=== PATIENT | male | born 1995 | race Asian ===

== ENCOUNTER 2021-12-31 19:52 | Inpatient (IN) | payer MEDICAID, OTHER ==
[~2021-12-31] VITALS: Ht 167.6 cm; Wt 65.6 kg
[2021-12-31 20:26] LABS: BASOPHILS % (AUTO) 0.7 % (0.0-2.0); HEMOGLOBIN 15.6 g/dL (13.5-17.5); LYMPHOCYTES # (AUTO) 2.4 K/uL (1.0-4.8); LYMPHOCYTES % (AUTO) 21.9 % (22.0-44.0); MEAN CORPUSCULAR HEMOGLOBIN 27.6 pg (26.0-34.0); MEAN CORPUSCULAR HGB CONC 33.9 G/dL (31.0-37.0); MEAN CORPUSCULAR VOLUME 82 fL (80-100); MONOCYTES # (AUTO) 0.6 K/uL (0.1-1.0); MONOCYTES % (AUTO) 5.3 % (2.0-9.0); NEUTROPHILS % (AUTO) 71.1 % (40.0-70.0); PLATELET COUNT (AUTO) 315 K/uL (150-450); RED BLOOD CELL COUNT(AUTO) 5.64 MIL/uL (4.50-5.90); RED CELL DISTRIBUTION WIDTH 14.2 % (11.5-14.5)
[2021-12-31 20:33] LABS: AMPHET/METH SCREEN,URINE POSITIVE (NEGATIVE); BARBITURATE SCREEN, URINE NEGATIVE (NEGATIVE); BENZODIAZEPINES SCREEN,URINE NEGATIVE (NEGATIVE); CANNABINOID SCREEN,URINE NEGATIVE (NEGATIVE); COCAINE SCREEN,URINE NEGATIVE (NEGATIVE); METHADONE SCREEN, URINE NEGATIVE (NEGATIVE); OPIATE SCREEN,URINE NEGATIVE (NEGATIVE); PHENCYCLIDINE SCREEN,URINE NEGATIVE (NEGATIVE)
[2021-12-31 20:38] LABS: ANION GAP 11 mmol/L (8-16); CALCIUM, TOTAL 9.2 mg/dL (8.8-10.5); CARBON DIOXIDE 28 mmol/L (22-29); CHLORIDE 102 mmol/L (98-107); CREATININE 0.97 mg/dL (0.60-1.30); GLOMERULAR FILTR. RATE CALC > 60 mL/min (>60); GLUCOSE,RANDOM 77 mg/dL (70-110); POTASSIUM 3.5 mmol/L (3.5-5.1); SODIUM SERUM 141 mmol/L (136-145); UREA NITROGEN, BLOOD 15 mg/dL (7-18)
[2021-12-31 20:40] LABS: ALANINE AMINOTRANSFERASE 31 U/L (12-78); ALBUMIN 4.4 g/dL (3.4-5.0); ALKALINE PHOSPHATASE 69 U/L (46-116); ASPARTATE AMINOTRANSFERASE 45 U/L (15-37); BILIRUBIN,TOTAL 0.3 mg/dL (0.1-1.0); TOTAL PROTEIN, SERUM 8.5 g/dL (6.4-8.2)
[2021-12-31 21:49] LABS: COVID AG,FIA SOURCE NASOPHARYNGEAL
[2021-12-31] MEDS ORDERED: ZOLPIDEM TARTRATE 10 MG TABLET PO PRN (22:00)
[2022-01-01 00:44] LABS: CHOL/HDL RATIO 2.6 (4.2-7.3); CHOLESTEROL 213 mg/dL (131-200); HDL CHOLESTEROL 83 mg/dL (40-60); LDL CHOL (CALC.) 83 mg/dL (0-130); TRIGLYCERIDES 235 mg/dL (15-150)
[2022-01-01 01:04] VITALS: BP 120/66
[2022-01-01] MEDS ORDERED: INFLUENZA VIRUS VACCINE QVS 2021-22 (6MO+)/PF 60 MCG/0.5 ML SYRINGE IM. ONE (02:15)
[2022-01-01 10:24] VITALS: BP 108/73
[2022-01-01] MEDS: OLANZapine 5 MG RAPDIS TABLET PO SCH ×2 (10:56→16:19)
[2022-01-01] MEDS ORDERED: GuaiFENesin/D-METHORPHAN [SUGAR-FREE] 200-20MG/10 ML SYRUP UDCUP PO PRN (13:00)
[2022-01-01] MEDS ORDERED: PETROLATUM,WHITE 28 GM JELLY TP PRN (13:00)
[2022-01-01] MEDS ORDERED: ACETAMINOPHEN 325 MG TABLET PO PRN (13:00)
[2022-01-01] MEDS ORDERED: ONDANSETRON HCL 4 MG TABLET PO PRN (13:00)
[2022-01-01] MEDS ORDERED: LOPERAMIDE HCL 2 MG CAPSULE PO PRN (13:00)
[2022-01-01] MEDS ORDERED: CloNIDine HCL 0.1 MG TABLET PO PRN (13:00)
[2022-01-01] MEDS ORDERED: IBUPROFEN 400 MG TABLET PO PRN (13:00)
[2022-01-01] MEDS ORDERED: ALBUTEROL SULFATE HFA 90 MCG/PUFF 8 GM INHALER IH PRN (13:00)
[2022-01-01] MEDS ORDERED: MAG HYDROX/AL HYDROX/SIMETH ES 30 ML SUSPENSION UDCUP PO PRN (13:00)
[2022-01-01] MEDS ORDERED: DOCUSATE SODIUM 100 MG CAPSULE PO PRN (13:00)
[2022-01-01] MEDS ORDERED: NICOTINE 14 MG/24 HOUR PATCH TD PRN (13:00)
[2022-01-01] MEDS ORDERED: MAGNESIUM HYDROXIDE SUSPENSION 30 ML UDCUP PO PRN (13:00)
[2022-01-01] MEDS: HALOPERIDOL 5 MG TABLET PO PRN (16:43)
[2022-01-02] MEDS: OLANZapine 5 MG RAPDIS TABLET PO SCH ×2 (08:53→17:00)
[2022-01-02 09:00] VITALS: BP 110/74
[2022-01-02 16:19] VITALS: BP 124/82
[2022-01-03 08:00] VITALS: BP 130/77
[2022-01-03] MEDS: OLANZapine 5 MG RAPDIS TABLET PO SCH ×2 (09:33→15:57)
[2022-01-03 16:14] VITALS: BP 132/64
[2022-01-04] MEDS: OLANZapine 5 MG RAPDIS TABLET PO SCH ×2 (08:11→16:00)
[2022-01-04 16:24] VITALS: BP 119/64
[2022-01-05 08:27] VITALS: BP 133/86
[2022-01-05] MEDS: OLANZapine 5 MG RAPDIS TABLET PO SCH ×2 (09:13→16:23)
[2022-01-05] MEDS: LORazepam 2 MG TABLET PO PRN (17:09)
[2022-01-05 18:03] VITALS: BP 144/82
[2022-01-06] MEDS: OLANZapine 5 MG RAPDIS TABLET PO SCH ×2 (08:26→17:03)
[2022-01-06 08:56] VITALS: BP 130/76
[2022-01-06] MEDS: LORazepam 2 MG TABLET PO PRN ×2 (09:07→15:46)
[2022-01-06 17:04] VITALS: BP 108/65
[2022-01-07] MEDS: OLANZapine 5 MG RAPDIS TABLET PO SCH ×2 (07:45→16:19)
[2022-01-07 08:00] VITALS: BP 129/68
[2022-01-07 15:22] LABS: COVID AG,FIA SOURCE NASOPHARYNGEAL
[2022-01-07] MEDS: LORazepam 2 MG TABLET PO PRN (16:21)
[2022-01-07 17:17] VITALS: BP 148/68
[2022-01-08] MEDS: OLANZapine 5 MG RAPDIS TABLET PO SCH ×2 (08:02→16:25)
[2022-01-08 08:34] VITALS: BP 148/68
[2022-01-08] MEDS: LORazepam 2 MG TABLET PO PRN (16:24)
[2022-01-08 16:37] VITALS: BP 120/70
[2022-01-09 08:32] VITALS: BP 117/77
[2022-01-09] MEDS: LORazepam 2 MG TABLET PO PRN ×2 (09:19→15:46)
[2022-01-09] MEDS: FOLIC ACID 1 MG TABLET PO SCH (09:20)
[2022-01-09] MEDS: OLANZapine 5 MG RAPDIS TABLET PO SCH ×2 (09:20→16:32)
[2022-01-09] MEDS: MULTIVITAMINS WITH MINERALS, THERAPEUTIC TABLET PO SCH (09:20)
[2022-01-09] MEDS: THIAMINE 100 MG TABLET PO SCH (09:20)
[2022-01-09 16:09] VITALS: BP 130/91
[2022-01-10 08:10] VITALS: BP 129/54
[2022-01-10] MEDS: MULTIVITAMINS WITH MINERALS, THERAPEUTIC TABLET PO SCH (08:57)
[2022-01-10] MEDS: FOLIC ACID 1 MG TABLET PO SCH (08:57)
[2022-01-10] MEDS: LORazepam 2 MG TABLET PO PRN ×2 (08:57→15:45)
[2022-01-10] MEDS: OLANZapine 5 MG RAPDIS TABLET PO SCH ×2 (08:57→16:06)
[2022-01-10] MEDS: THIAMINE 100 MG TABLET PO SCH (08:57)
[2022-01-10 16:53] VITALS: BP 129/66
[2022-01-11] MEDS: THIAMINE 100 MG TABLET PO SCH (09:16)
[2022-01-11] MEDS: MULTIVITAMINS WITH MINERALS, THERAPEUTIC TABLET PO SCH (09:16)
[2022-01-11] MEDS: OLANZapine 5 MG RAPDIS TABLET PO SCH (09:16)
[2022-01-11] MEDS: FOLIC ACID 1 MG TABLET PO SCH (09:16)
[2022-01-11 10:00] VITALS: BP 137/59
[2022-01-11] MEDS: LORazepam 2 MG TABLET PO PRN (12:40)
[2022-01-11] MEDS: HALOPERIDOL 5 MG TABLET PO PRN ×2 (12:40→16:40)
[2022-01-11 14:58] LABS: COVID AG,FIA SOURCE NASOPHARYNGEAL
[2022-01-11 16:14] VITALS: BP 120/74
[2022-01-11] MEDS: OLANZapine 10 MG TABLET PO SCH (16:25)
[2022-01-12 08:00] VITALS: BP 126/73
[2022-01-12] MEDS ORDERED: OLAN10 PO (10:24)
[2022-01-12] MEDS: OLANZapine 10 MG TABLET PO SCH (10:33)
[2022-01-12] MEDS: MULTIVITAMINS WITH MINERALS, THERAPEUTIC TABLET PO SCH (10:33)
[2022-01-12] MEDS: THIAMINE 100 MG TABLET PO SCH (10:33)
[2022-01-12] MEDS: FOLIC ACID 1 MG TABLET PO SCH (10:33)
== END 2022-01-12 13:35 | disposition home or self-care (01) | DRG 750 ==
LOC: EMS 19:54 → 3EC 01-01 00:17
PROVIDERS: ADMIT Psychiatry & Neurology Child & Adolescent Psychiatry; ATTEND Psychiatry & Neurology Child & Adolescent Psychiatry
DX: F20.0 Paranoid schizophrenia (principal); Z59.00 Homelessness unspecified; D72.829 Elevated white blood cell count, unspecified; E78.5 Hyperlipidemia, unspecified; F15.90 Other stimulant use, unspecified, uncomplicated; F41.9 Anxiety disorder, unspecified; R74.01 Elevation of levels of liver transaminase levels; Z20.822 Contact with and (suspected) exposure to COVID-19; Z71.6 Tobacco abuse counseling; Z23 Encounter for immunization; F17.210 Nicotine dependence, cigarettes, uncomplicated
CPT/HCPCS: 80053; 80061; 85025; 90686; 93005; 99285; G0480